=== PATIENT | female | born 1955 ===

== ENCOUNTER 2019-01-26 09:37 | Inpatient (IN) ==
[2019-01-26] MEDS ORDERED: GLUCAGON 1 MG VIAL IM PRN (13:58)
[2019-01-26] MEDS ORDERED: ONDANSETRON 4 MG/2 ML VIAL IV PRN (13:58)
[2019-01-26] MEDS ORDERED: DEXTROSE 10% 25 GM/250 ML BAG IV PRN (13:58)
[2019-01-26] MEDS ORDERED: ACETAMINOPHEN 325 MG TABLET PO PRN (13:58)
[2019-01-26 14:37] LABS: Basophils % 0.2 % (0.0-0.8); Hematocrit 26.8 VOL% (35.7-47.0); Hemoglobin 8.9 GM/DL (12.0-16.0); Immature Granulocytes % 0.8 %; Immature Granulocytes Absolute 0.09 #; Lymphocytes # 0.7 10*3/uL (1.4-4.0); Lymphocytes % 6.3 % (21.3-54.2); Mean Corpuscular HGB Conc 33.2 GM/DL (32-36); Mean Corpuscular Volume 101.1 FL (87-102); Mean Platelet Volume 11.6 FL (9.6-12.0); Monocytes % 4.4 % (1.7-12.7); Neutrophils % 88.3 % (38.7-73.9); Platelet Count 108 T/CUMM (130-400); Red Blood Count 2.65 MC/CUMM (3.8-5.5); Red Cell Distribution Width 15.6 % (9.3-17.3); White Blood Count 11.3 T/CUMM (4-12)
[2019-01-26] MEDS ORDERED: EPOETIN ALFA 10,000 UNIT/1 ML VIAL IV PRN (14:49)
[2019-01-26 15:14] LABS: Bilirubin,Total 0.5 MG/DL (0.2-1.0); Calcium 8.7 MG/DL (8.5-10.1); Osmolality,Calculated 286.8 MOS/KG (273-304); Thyroid Stimulating Hormone 0.932 uIU/ml (0.358-3.74); Total Protein 7.2 G/DL (6.4-8.3)
[2019-01-26] MEDS: INSULIN LISPRO 100 UNIT/ML SUBCUT SCH ×2 (16:45→20:43)
[2019-01-26] MEDS: METOCLOPRAMIDE 5 MG TABLET PO SCH (16:46)
[2019-01-26] MEDS ORDERED: SEVELAMER CARBONATE 800 MG TABLET PO PRN (16:52)
[2019-01-26] MEDS: SEVELAMER CARBONATE 800 MG TABLET PO SCH (17:25)
[2019-01-26] MEDS: carvediloL 6.25 MG TABLET PO SCH (20:43)
[2019-01-26] MEDS: ROSUVASTATIN 20 MG TABLET PO SCH (20:43)
[2019-01-26] MEDS: PENTOXIFYLLINE 400 MG TABLET PO SCH (20:43)
[2019-01-26] MEDS ORDERED: SEVELAMER CARBONATE 800 MG TABLET PO SCH (21:00)
[2019-01-27 04:50] LABS: Basophils % 0.1 % (0.0-0.8); Eosinophils % 0.2 % (0.00-10.9); Hematocrit 26.9 VOL% (35.7-47.0); Hemoglobin 8.8 GM/DL (12.0-16.0); Immature Granulocytes % 0.9 %; Immature Granulocytes Absolute 0.09 #; Lymphocytes # 1.1 10*3/uL (1.4-4.0); Lymphocytes % 11.5 % (21.3-54.2); Mean Corpuscular HGB Conc 32.7 GM/DL (32-36); Mean Corpuscular Volume 100.4 FL (87-102); Mean Platelet Volume 12.6 FL (9.6-12.0); Monocytes % 6.7 % (1.7-12.7); Neutrophils % 80.6 % (38.7-73.9); Platelet Count 105 T/CUMM (130-400); Red Blood Count 2.68 MC/CUMM (3.8-5.5); Red Cell Distribution Width 15.5 % (9.3-17.3); White Blood Count 9.7 T/CUMM (4-12)
[2019-01-27 05:06] LABS: Bilirubin,Total 0.7 MG/DL (0.2-1.0); Calcium 8.8 MG/DL (8.5-10.1); Osmolality,Calculated 289.8 MOS/KG (273-304); Risk Ratio 1.96
[2019-01-27] MEDS: INSULIN LISPRO 100 UNIT/ML SUBCUT SCH ×4 (08:57→20:30)
[2019-01-27] MEDS ORDERED: SEVELAMER CARBONATE 800 MG TABLET PO SCH (09:00)
[2019-01-27] MEDS: lisinopriL 20 MG TABLET PO SCH (09:02)
[2019-01-27] MEDS: METOCLOPRAMIDE 5 MG TABLET PO SCH ×3 (09:02→16:41)
[2019-01-27] MEDS: SEVELAMER CARBONATE 800 MG TABLET PO SCH ×3 (09:04→16:41)
[2019-01-27] MEDS: PENTOXIFYLLINE 400 MG TABLET PO SCH ×3 (09:04→20:30)
[2019-01-27] MEDS: DOCUSATE SODIUM 100 MG CAPSULE PO SCH (09:04)
[2019-01-27] MEDS: PANTOPRAZOLE 40 MG TABLET PO SCH (09:04)
[2019-01-27] MEDS: ASPIRIN EC 81 MG TABLET PO SCH (09:04)
[2019-01-27] MEDS: amLODIPine 10 MG TABLET PO SCH (09:04)
[2019-01-27] MEDS: carvediloL 6.25 MG TABLET PO SCH ×2 (09:05→20:30)
[2019-01-27] MEDS: ROSUVASTATIN 20 MG TABLET PO SCH (20:30)
[2019-01-28 04:57] LABS: Basophils % 0.2 % (0.0-0.8); Eosinophils # 0.1 10*3/uL (0.0-0.87); Hematocrit 24.9 VOL% (35.7-47.0); Immature Granulocytes % 0.3 %; Immature Granulocytes Absolute 0.02 #; Lymphocytes # 1.3 10*3/uL (1.4-4.0); Lymphocytes % 20.1 % (21.3-54.2); Mean Corpuscular HGB Conc 32.1 GM/DL (32-36); Mean Corpuscular Volume 102.5 FL (87-102); Mean Platelet Volume 12.4 FL (9.6-12.0); Monocytes % 8.8 % (1.7-12.7); Neutrophils % 68.6 % (38.7-73.9); Platelet Count 89 T/CUMM (130-400); Red Blood Count 2.43 MC/CUMM (3.8-5.5); Red Cell Distribution Width 15.3 % (9.3-17.3); White Blood Count 6.6 T/CUMM (4-12)
[2019-01-28 05:21] LABS: Albumin 2.6 G/DL (3.4-5.0); Bilirubin,Total 0.5 MG/DL (0.2-1.0); Calcium 8.2 MG/DL (8.5-10.1); Total Protein 6.2 G/DL (6.4-8.3)
[2019-01-28 05:22] LABS: Hypochromasia 1+; Platelet Estimate Decreased
[2019-01-28] MEDS: amLODIPine 10 MG TABLET PO SCH (09:40)
[2019-01-28] MEDS: DOCUSATE SODIUM 100 MG CAPSULE PO SCH (09:40)
[2019-01-28] MEDS: ASPIRIN EC 81 MG TABLET PO SCH (09:40)
[2019-01-28] MEDS: METOCLOPRAMIDE 5 MG TABLET PO SCH ×3 (09:41→16:43)
[2019-01-28] MEDS: PANTOPRAZOLE 40 MG TABLET PO SCH (09:41)
[2019-01-28] MEDS: PENTOXIFYLLINE 400 MG TABLET PO SCH ×3 (09:41→20:28)
[2019-01-28] MEDS: carvediloL 6.25 MG TABLET PO SCH ×2 (09:41→20:28)
[2019-01-28] MEDS: lisinopriL 20 MG TABLET PO SCH (09:48)
[2019-01-28] MEDS: INSULIN LISPRO 100 UNIT/ML SUBCUT SCH ×4 (09:50→20:28)
[2019-01-28] MEDS: SEVELAMER CARBONATE 800 MG TABLET PO SCH ×3 (10:02→18:15)
[2019-01-28 12:48] LABS: Hepatitis B Core IgM Quant 0.15 Index; Hepatitis B Surface Ag Quant 0.34 Index; Hepatitis B Surface Ag Result Negative (Negative); Hepatitis C Virus Ab Quant 0.04 Index; Hepatitis C Virus Ab Result Negative (Negative)
[2019-01-28 18:02] VITALS: BP 98/50
[2019-01-28] MEDS: ROSUVASTATIN 20 MG TABLET PO SCH (20:28)
== END 2019-01-28 22:33 | disposition home or self-care (01) | DRG 314 ==
LOC: N.TELES → SUATTDRO 12:08
PROVIDERS: ADMIT Internal Medicine; ATTEND Internal Medicine Geriatric Medicine

== ENCOUNTER 2020-12-03 06:00 | Inpatient (IN) ==
[2020-12-03] MEDS ORDERED: ceFAZolin 1,000 MG VIAL ONE (06:01)
[2020-12-03] MEDS ORDERED: SODIUM CHLORIDE 0.9% 250 ML IV SCH (06:30)
[2020-12-03 06:55] LABS: Hematocrit 33.7 VOL% (35.7-47.0); Hemoglobin 10.1 GM/DL (12.0-16.0)
[2020-12-03] MEDS ORDERED: FAMOTIDINE 20 MG TABLET PO ONE (10:00)
[2020-12-03] MEDS ORDERED: ALBUTEROL/IPRATROPIUM 3 ML NEB RESP TX PRN (11:58)
[2020-12-03] MEDS ORDERED: HYDROmorphone 2 MG/1 ML VIAL IV PRN (11:58)
[2020-12-03] MEDS ORDERED: ACETAMINOPHEN 325 MG TABLET PO PRN (11:58)
[2020-12-03] MEDS ORDERED: VANCOMYCIN INJ 1,000 MG in SODIUM CHLORIDE 0.9% 250 ML IV SCH (12:30)
[2020-12-03] MEDS ORDERED: SEVELAMER CARBONATE 800 MG TABLET PO SCH (12:30)
[2020-12-03] MEDS ORDERED: REGADENOSON 0.4 MG/5 ML SYRINGE IV ONE (13:37)
[2020-12-03] MEDS ORDERED: VANCOMYCIN 1,000 MG VIAL ONE (14:36)
[2020-12-03] MEDS: LACTATED RINGERS 1,000 ML IV SCH (14:45)
[2020-12-03] MEDS: PIPERACILLIN/TAZOBACTAM 3,375 MG in SODIUM CHLORIDE 0.9% 100 ML IV SCH ×2 (14:50→23:00)
[2020-12-03] MEDS: traMADol 50 MG TABLET PO PRN (14:51)
[2020-12-03] MEDS ORDERED: GLUCAGON 1 MG VIAL IM PRN (15:52)
[2020-12-03] MEDS ORDERED: DEXTROSE 50% 25 GM/50 ML VIAL IV PRN (15:52)
[2020-12-03] MEDS: PENTOXIFYLLINE 400 MG TABLET PO SCH ×2 (15:53→21:00)
[2020-12-03] MEDS ORDERED: VANCOMYCIN INJ 500 MG in SODIUM CHLORIDE 0.9% 100 ML IV PRN (15:57)
[2020-12-03] MEDS: SEVELAMER CARBONATE 800 MG TABLET PO SCH ×2 (16:01→21:00)
[2020-12-03 16:25] LABS: Calcium 8.8 MG/DL (8.5-10.1); Osmolality,Calculated 280.1 MOS/KG (273-304); Potassium 3.4 MMOL/L (3.5-5.1)
[2020-12-03] MEDS: INSULIN LISPRO 100 UNIT/ML SUBCUT SCH (16:45)
[2020-12-03] MEDS: INSULIN REGULAR 100 UNIT/ML SUBCUT SCH ×2 (17:15→21:43)
[2020-12-03] MEDS ORDERED: VANCOMYCIN INJ 2,000 MG in SODIUM CHLORIDE 0.9% 500 ML IV ONE (20:00)
[2020-12-03] MEDS: carvediloL 6.25 MG TABLET PO SCH (21:00)
[2020-12-04] MEDS: PIPERACILLIN/TAZOBACTAM 3,375 MG in SODIUM CHLORIDE 0.9% 100 ML IV SCH ×3 (04:19→21:20)
[2020-12-04 05:21] LABS: Basophils % 0.3 % (0.0-0.8); Eosinophils # 0.1 10*3/uL (0.0-0.87); Eosinophils % 1.7 % (0.00-10.9); Hematocrit 30.3 VOL% (35.7-47.0); Hemoglobin 9.1 GM/DL (12.0-16.0); Immature Granulocytes % 0.5 %; Immature Granulocytes Absolute 0.03 #; Lymphocytes # 1.2 10*3/uL (1.4-4.0); Lymphocytes % 18.6 % (21.3-54.2); Mean Platelet Volume 11.6 FL (9.6-12.0); Neutrophils % 69.9 % (38.7-73.9); Platelet Count 120 T/CUMM (130-400); Red Blood Count 3.03 MC/CUMM (3.8-5.5); Red Cell Distribution Width 19.9 % (9.3-17.3); White Blood Count 6.5 T/CUMM (4-12)
[2020-12-04] MEDS: LOPERAMIDE 2 MG CAPSULE PO SCH (05:42)
[2020-12-04 05:46] LABS: Calcium 8.7 MG/DL (8.5-10.1); Osmolality,Calculated 284.7 MOS/KG (273-304); Potassium 3.5 MMOL/L (3.5-5.1)
[2020-12-04] MEDS: INSULIN REGULAR 100 UNIT/ML SUBCUT SCH ×4 (07:09→23:01)
[2020-12-04] MEDS ORDERED: CLINDAMYCIN INJ 900 MG/50 ML PREMIX IV ONE (07:10)
[2020-12-04] MEDS: INSULIN LISPRO 100 UNIT/ML SUBCUT SCH ×3 (08:00→15:08)
[2020-12-04] MEDS: SEVELAMER CARBONATE 800 MG TABLET PO SCH ×5 (08:00→21:26)
[2020-12-04] MEDS: lisinopriL 20 MG TABLET PO SCH (08:22)
[2020-12-04] MEDS: carvediloL 6.25 MG TABLET PO SCH ×2 (08:22→21:20)
[2020-12-04] MEDS ORDERED: MIDAZOLAM 2 MG/2 ML VIAL ONE (08:28)
[2020-12-04] MEDS ORDERED: propofoL 200 MG/20 ML VIAL IV ONE (08:28)
[2020-12-04] MEDS ORDERED: fentaNYL 100 MCG/2 ML VIAL ONE (08:28)
[2020-12-04] MEDS ORDERED: LIDOCAINE 2% 5 ML VIAL ONE (08:28)
[2020-12-04] MEDS ORDERED: ONDANSETRON 4 MG/2 ML VIAL ONE (08:28)
[2020-12-04] MEDS ORDERED: FAMOTIDINE 20 MG/2 ML VIAL IV ONE (08:37)
[2020-12-04] MEDS ORDERED: ROCURONIUM 50 MG/5 ML VIAL IV ONE (08:46)
[2020-12-04] MEDS ORDERED: SUCCINYLCHOLINE 200 MG/10 ML VIAL ONE (08:46)
[2020-12-04] MEDS ORDERED: SODIUM CHLORIDE 0.9% 250 ML IV SCH (09:00)
[2020-12-04] MEDS: PENTOXIFYLLINE 400 MG TABLET PO SCH ×3 (09:00→21:20)
[2020-12-04] MEDS ORDERED: PHENYLEPHRINE 1 MG/10 ML SYRINGE IV ONE (09:09)
[2020-12-04] MEDS ORDERED: SEVOFLURANE 1 UNIT/15 MINUTE INH ONE (09:27)
[2020-12-04] MEDS: ASPIRIN CHEW 81 MG TABLET PO SCH (15:29)
[2020-12-04] MEDS: ROSUVASTATIN 20 MG TABLET PO SCH (15:29)
[2020-12-04] MEDS: PANTOPRAZOLE 40 MG TABLET PO SCH (15:30)
[2020-12-04] MEDS: GABAPENTIN 100 MG CAPSULE PO SCH ×3 (15:30→21:32)
[2020-12-04] MEDS ORDERED: VANCOMYCIN INJ 500 MG in SODIUM CHLORIDE 0.9% 100 ML IV ONE (17:00)
[2020-12-04] MEDS: ONDANSETRON 4 MG/2 ML VIAL IV PRN (19:29)
[2020-12-04] MEDS: LACTATED RINGERS 1,000 ML IV SCH ×2 (19:30→19:31)
[2020-12-04] MEDS: BISACODYL 5 MG TABLET PO PRN (21:19)
[2020-12-05] MEDS: PIPERACILLIN/TAZOBACTAM 3,375 MG in SODIUM CHLORIDE 0.9% 100 ML IV SCH ×3 (04:37→20:24)
[2020-12-05] MEDS: LACTATED RINGERS 1,000 ML IV SCH (04:39)
[2020-12-05] MEDS: INSULIN REGULAR 100 UNIT/ML SUBCUT SCH ×4 (07:28→20:13)
[2020-12-05] MEDS: INSULIN LISPRO 100 UNIT/ML SUBCUT SCH ×3 (07:28→16:50)
[2020-12-05] MEDS: carvediloL 6.25 MG TABLET PO SCH ×2 (08:47→20:24)
[2020-12-05] MEDS: ROSUVASTATIN 20 MG TABLET PO SCH (08:47)
[2020-12-05] MEDS: ASPIRIN CHEW 81 MG TABLET PO SCH (08:47)
[2020-12-05] MEDS: SEVELAMER CARBONATE 800 MG TABLET PO SCH ×4 (08:47→20:14)
[2020-12-05] MEDS: PANTOPRAZOLE 40 MG TABLET PO SCH (08:48)
[2020-12-05] MEDS: lisinopriL 20 MG TABLET PO SCH (08:48)
[2020-12-05] MEDS: PENTOXIFYLLINE 400 MG TABLET PO SCH ×3 (08:48→20:24)
[2020-12-05] MEDS: GABAPENTIN 100 MG CAPSULE PO SCH ×3 (08:48→20:24)
[2020-12-05] MEDS: ONDANSETRON 4 MG/2 ML VIAL IV PRN ×2 (11:30→17:27)
[2020-12-06] MEDS: PIPERACILLIN/TAZOBACTAM 3,375 MG in SODIUM CHLORIDE 0.9% 100 ML IV SCH ×3 (04:46→21:25)
[2020-12-06] MEDS: INSULIN LISPRO 100 UNIT/ML SUBCUT SCH ×3 (07:37→16:40)
[2020-12-06] MEDS: INSULIN REGULAR 100 UNIT/ML SUBCUT SCH ×4 (07:37→21:17)
[2020-12-06] MEDS: SEVELAMER CARBONATE 800 MG TABLET PO SCH ×4 (08:54→21:17)
[2020-12-06] MEDS: GABAPENTIN 100 MG CAPSULE PO SCH ×3 (08:56→21:25)
[2020-12-06] MEDS: ROSUVASTATIN 20 MG TABLET PO SCH (08:56)
[2020-12-06] MEDS: carvediloL 6.25 MG TABLET PO SCH ×2 (08:56→21:25)
[2020-12-06] MEDS: ASPIRIN CHEW 81 MG TABLET PO SCH (08:56)
[2020-12-06] MEDS: lisinopriL 20 MG TABLET PO SCH (08:56)
[2020-12-06] MEDS: PENTOXIFYLLINE 400 MG TABLET PO SCH ×3 (08:57→21:25)
[2020-12-06] MEDS: PANTOPRAZOLE 40 MG TABLET PO SCH (08:57)
[2020-12-06] MEDS: traMADol 50 MG TABLET PO PRN (23:12)
[2020-12-07] MEDS: PIPERACILLIN/TAZOBACTAM 3,375 MG in SODIUM CHLORIDE 0.9% 100 ML IV SCH ×4 (05:40→23:54)
[2020-12-07 06:52] LABS: Alanine Aminotransferase < 6 U/L (13-56); Albumin 2.3 G/DL (3.4-5.0); Alkaline Phosphatase 59 U/L (45-117); Aspartate Amino Transferase 14 U/L (0-37); Blood Urea Nitrogen 43 MG/DL (7-18); Calcium 8.2 MG/DL (8.5-10.1); Carbon Dioxide 25 MMOL/L (21-32); Estimated Glom Filtration Rate 8 ML/MIN; Glucose 130 MG/DL (74-106); Potassium 4.6 MMOL/L (3.5-5.1); Sodium 136 MMOL/L (136-145); Total Protein 5.8 G/DL (6.4-8.2)
[2020-12-07] MEDS: LOPERAMIDE 2 MG CAPSULE PO SCH (07:59)
[2020-12-07] MEDS: INSULIN REGULAR 100 UNIT/ML SUBCUT SCH ×4 (08:52→20:50)
[2020-12-07] MEDS: ASPIRIN CHEW 81 MG TABLET PO SCH (08:53)
[2020-12-07] MEDS: PANTOPRAZOLE 40 MG TABLET PO SCH (08:53)
[2020-12-07] MEDS: ROSUVASTATIN 20 MG TABLET PO SCH (08:53)
[2020-12-07] MEDS: lisinopriL 20 MG TABLET PO SCH (08:53)
[2020-12-07] MEDS: carvediloL 6.25 MG TABLET PO SCH ×2 (08:53→20:35)
[2020-12-07] MEDS: INSULIN LISPRO 100 UNIT/ML SUBCUT SCH ×3 (08:53→17:49)
[2020-12-07] MEDS: GABAPENTIN 100 MG CAPSULE PO SCH ×3 (08:53→20:34)
[2020-12-07] MEDS: SEVELAMER CARBONATE 800 MG TABLET PO SCH ×4 (08:53→20:51)
[2020-12-07] MEDS: PENTOXIFYLLINE 400 MG TABLET PO SCH ×3 (08:54→20:34)
[2020-12-07] MEDS: LACTATED RINGERS 1,000 ML IV SCH (11:13)
[2020-12-07] MEDS ORDERED: VANCOMYCIN INJ 500 MG in SODIUM CHLORIDE 0.9% 100 ML IV ONE (17:00)
[2020-12-07] MEDS: traMADol 50 MG TABLET PO PRN (23:53)
[2020-12-08] MEDS ORDERED: fentaNYL 100 MCG/2 ML VIAL ONE (08:07)
[2020-12-08] MEDS ORDERED: LIDOCAINE 2% 5 ML VIAL ONE (08:07)
[2020-12-08] MEDS ORDERED: ONDANSETRON 4 MG/2 ML VIAL ONE (08:07)
[2020-12-08] MEDS ORDERED: propofoL 200 MG/20 ML VIAL IV ONE (08:07)
[2020-12-08] MEDS: INSULIN REGULAR 100 UNIT/ML SUBCUT SCH ×4 (08:09→22:59)
[2020-12-08] MEDS: PENTOXIFYLLINE 400 MG TABLET PO SCH ×3 (08:10→21:29)
[2020-12-08] MEDS: lisinopriL 20 MG TABLET PO SCH (08:10)
[2020-12-08] MEDS: carvediloL 6.25 MG TABLET PO SCH ×2 (08:10→21:29)
[2020-12-08] MEDS: ROSUVASTATIN 20 MG TABLET PO SCH (08:10)
[2020-12-08] MEDS: GABAPENTIN 100 MG CAPSULE PO SCH ×3 (08:10→21:29)
[2020-12-08] MEDS: ASPIRIN CHEW 81 MG TABLET PO SCH (08:10)
[2020-12-08] MEDS: PANTOPRAZOLE 40 MG TABLET PO SCH (08:10)
[2020-12-08] MEDS: INSULIN LISPRO 100 UNIT/ML SUBCUT SCH ×3 (08:10→17:08)
[2020-12-08] MEDS: SEVELAMER CARBONATE 800 MG TABLET PO SCH ×4 (08:10→22:59)
[2020-12-08] MEDS ORDERED: SODIUM CHLORIDE 0.9% 250 ML IV SCH (08:30)
[2020-12-08] MEDS ORDERED: ePHEDrine 50 MG/ML VIAL ONE (08:41)
[2020-12-08] MEDS ORDERED: SEVOFLURANE 1 UNIT/15 MINUTE INH ONE (09:35)
[2020-12-08] MEDS: HYDROmorphone 2 MG/1 ML VIAL IV PRN (10:02)
[2020-12-08] MEDS: ONDANSETRON 4 MG/2 ML VIAL IV PRN (10:03)
[2020-12-08] MEDS: PIPERACILLIN/TAZOBACTAM 3,375 MG in SODIUM CHLORIDE 0.9% 100 ML IV SCH (11:38)
[2020-12-08] MEDS: traMADol 50 MG TABLET PO PRN (21:29)
[2020-12-09] MEDS: PIPERACILLIN/TAZOBACTAM 3,375 MG in SODIUM CHLORIDE 0.9% 100 ML IV SCH ×3 (00:17→23:55)
[2020-12-09] MEDS: LOPERAMIDE 2 MG CAPSULE PO SCH (06:22)
[2020-12-09] MEDS: INSULIN REGULAR 100 UNIT/ML SUBCUT SCH ×4 (07:26→21:24)
[2020-12-09] MEDS: INSULIN LISPRO 100 UNIT/ML SUBCUT SCH ×3 (07:26→16:09)
[2020-12-09] MEDS: SEVELAMER CARBONATE 800 MG TABLET PO SCH ×4 (08:32→21:24)
[2020-12-09] MEDS: PENTOXIFYLLINE 400 MG TABLET PO SCH ×3 (09:00→21:24)
[2020-12-09] MEDS: GABAPENTIN 100 MG CAPSULE PO SCH ×3 (09:00→21:24)
[2020-12-09] MEDS: ASPIRIN CHEW 81 MG TABLET PO SCH (14:44)
[2020-12-09] MEDS: carvediloL 6.25 MG TABLET PO SCH ×2 (14:45→21:24)
[2020-12-09] MEDS: ROSUVASTATIN 20 MG TABLET PO SCH (14:45)
[2020-12-09] MEDS: lisinopriL 20 MG TABLET PO SCH (14:46)
[2020-12-09] MEDS: PANTOPRAZOLE 40 MG TABLET PO SCH (14:46)
[2020-12-09] MEDS: VANCOMYCIN INJ 500 MG in SODIUM CHLORIDE 0.9% 100 ML IV ONE ×2 (17:42→19:10)
[2020-12-10] MEDS: HYDROmorphone 2 MG/1 ML VIAL IV PRN (01:37)
[2020-12-10] MEDS: INSULIN REGULAR 100 UNIT/ML SUBCUT SCH ×4 (08:11→21:21)
[2020-12-10] MEDS: INSULIN LISPRO 100 UNIT/ML SUBCUT SCH ×3 (08:12→18:09)
[2020-12-10] MEDS: ROSUVASTATIN 20 MG TABLET PO SCH (10:03)
[2020-12-10] MEDS: lisinopriL 20 MG TABLET PO SCH (10:03)
[2020-12-10] MEDS: ASPIRIN CHEW 81 MG TABLET PO SCH (10:04)
[2020-12-10] MEDS: PENTOXIFYLLINE 400 MG TABLET PO SCH ×3 (10:04→21:01)
[2020-12-10] MEDS: PANTOPRAZOLE 40 MG TABLET PO SCH (10:04)
[2020-12-10] MEDS: carvediloL 6.25 MG TABLET PO SCH ×2 (10:04→21:01)
[2020-12-10] MEDS: GABAPENTIN 100 MG CAPSULE PO SCH ×3 (10:04→21:01)
[2020-12-10] MEDS: SEVELAMER CARBONATE 800 MG TABLET PO SCH ×4 (10:09→21:14)
[2020-12-10] MEDS: PIPERACILLIN/TAZOBACTAM 3,375 MG in SODIUM CHLORIDE 0.9% 100 ML IV SCH ×2 (12:15→23:52)
[2020-12-11] MEDS: LOPERAMIDE 2 MG CAPSULE PO SCH (05:18)
[2020-12-11] MEDS ORDERED: VANCOMYCIN INJ 500 MG in SODIUM CHLORIDE 0.9% 100 ML IV PRN (07:21)
[2020-12-11] MEDS: INSULIN REGULAR 100 UNIT/ML SUBCUT SCH ×4 (07:30→21:22)
[2020-12-11] MEDS: lisinopriL 20 MG TABLET PO SCH (08:26)
[2020-12-11] MEDS: INSULIN LISPRO 100 UNIT/ML SUBCUT SCH ×3 (08:26→16:49)
[2020-12-11] MEDS: GABAPENTIN 100 MG CAPSULE PO SCH ×3 (08:27→21:47)
[2020-12-11] MEDS: ROSUVASTATIN 20 MG TABLET PO SCH (08:27)
[2020-12-11] MEDS: ASPIRIN CHEW 81 MG TABLET PO SCH (08:27)
[2020-12-11] MEDS: carvediloL 6.25 MG TABLET PO SCH ×2 (08:27→21:47)
[2020-12-11] MEDS: PENTOXIFYLLINE 400 MG TABLET PO SCH ×3 (08:29→21:47)
[2020-12-11] MEDS: PANTOPRAZOLE 40 MG TABLET PO SCH (08:29)
[2020-12-11] MEDS: SEVELAMER CARBONATE 800 MG TABLET PO SCH ×4 (08:29→21:48)
[2020-12-11 08:41] LABS: Basophils % 0.2 % (0.0-0.8); Eosinophils # 0.1 10*3/uL (0.0-0.87); Eosinophils % 1.7 % (0.00-10.9); Hematocrit 24.3 VOL% (35.7-47.0); Immature Granulocytes % 0.5 %; Immature Granulocytes Absolute 0.03 #; Lymphocytes # 1.6 10*3/uL (1.4-4.0); Lymphocytes % 27.4 % (21.3-54.2); Mean Corpuscular HGB Conc 28.8 GM/DL (32-36); Mean Platelet Volume 11.3 FL (9.6-12.0); Monocytes % 6.5 % (1.7-12.7); Neutrophils % 63.7 % (38.7-73.9); Platelet Count 132 T/CUMM (130-400); Red Cell Distribution Width 19.2 % (9.3-17.3); White Blood Count 5.9 T/CUMM (4-12)
[2020-12-11 08:51] LABS: Red Blood Count 2.36 MC/CUMM (3.8-5.5)
[2020-12-11 08:57] LABS: Calcium 8.6 MG/DL (8.5-10.1); Osmolality,Calculated 286.4 MOS/KG (273-304); Potassium 4.8 MMOL/L (3.5-5.1)
[2020-12-11 08:59] LABS: Eosinophils 1 % (0-10); Lymphocytes 29 % (20-55); Segmented Neutrophils 60 % (50-85); Total Cells Counted 100
[2020-12-11 09:00] LABS: Hypochromasia 1+; Microcytosis 1+; Platelet Estimate Normal
[2020-12-11] MEDS ORDERED: EPOETIN ALFA-EPBX 2,000 UNIT/ML VIAL IV PRN (12:26)
[2020-12-11] MEDS: PIPERACILLIN/TAZOBACTAM 3,375 MG in SODIUM CHLORIDE 0.9% 100 ML IV SCH (14:57)
[2020-12-11] MEDS: BISACODYL 5 MG TABLET PO PRN (21:47)
[2020-12-12] MEDS: PIPERACILLIN/TAZOBACTAM 3,375 MG in SODIUM CHLORIDE 0.9% 100 ML IV SCH ×2 (00:33→12:06)
[2020-12-12 07:05] LABS: Eosinophils # 0.1 10*3/uL (0.0-0.87); Eosinophils % 1.3 % (0.00-10.9); Hematocrit 23.7 VOL% (35.7-47.0); Hemoglobin 6.8 GM/DL (12.0-16.0); Immature Granulocytes % 0.6 %; Immature Granulocytes Absolute 0.04 #; Lymphocytes # 1.2 10*3/uL (1.4-4.0); Lymphocytes % 17.8 % (21.3-54.2); Mean Corpuscular HGB Conc 28.7 GM/DL (32-36); Mean Corpuscular Volume 102.6 FL (87-102); Mean Platelet Volume 11.2 FL (9.6-12.0); Neutrophils % 75.3 % (38.7-73.9); Platelet Count 145 T/CUMM (130-400); Red Blood Count 2.31 MC/CUMM (3.8-5.5); Red Cell Distribution Width 18.9 % (9.3-17.3)
[2020-12-12 07:30] LABS: Calcium 8.5 MG/DL (8.5-10.1); Potassium 4.3 MMOL/L (3.5-5.1)
[2020-12-12] MEDS: ROSUVASTATIN 20 MG TABLET PO SCH (09:06)
[2020-12-12] MEDS: SEVELAMER CARBONATE 800 MG TABLET PO SCH ×4 (09:06→21:46)
[2020-12-12] MEDS: lisinopriL 20 MG TABLET PO SCH (09:06)
[2020-12-12] MEDS: carvediloL 6.25 MG TABLET PO SCH ×2 (09:07→20:33)
[2020-12-12] MEDS: GABAPENTIN 100 MG CAPSULE PO SCH ×3 (09:07→20:33)
[2020-12-12] MEDS: PANTOPRAZOLE 40 MG TABLET PO SCH (09:07)
[2020-12-12] MEDS: PENTOXIFYLLINE 400 MG TABLET PO SCH ×3 (09:07→20:32)
[2020-12-12] MEDS: ASPIRIN CHEW 81 MG TABLET PO SCH (09:07)
[2020-12-12] MEDS: INSULIN REGULAR 100 UNIT/ML SUBCUT SCH ×4 (09:08→21:46)
[2020-12-12] MEDS: INSULIN LISPRO 100 UNIT/ML SUBCUT SCH ×3 (09:09→16:46)
[2020-12-12 10:41] LABS: Lymphocytes 9 % (20-55); Segmented Neutrophils 87 % (50-85); Total Cells Counted 100
[2020-12-12 10:42] LABS: Ovalocytes Slight; Platelet Estimate Adequate
[2020-12-12 10:47] LABS: Target Cells Slight
[2020-12-13] MEDS: PIPERACILLIN/TAZOBACTAM 3,375 MG in SODIUM CHLORIDE 0.9% 100 ML IV SCH ×2 (00:31→11:43)
[2020-12-13] MEDS: carvediloL 6.25 MG TABLET PO SCH ×2 (09:05→21:41)
[2020-12-13] MEDS: SEVELAMER CARBONATE 800 MG TABLET PO SCH ×4 (09:05→21:59)
[2020-12-13] MEDS: lisinopriL 20 MG TABLET PO SCH (09:06)
[2020-12-13] MEDS: PENTOXIFYLLINE 400 MG TABLET PO SCH ×3 (09:06→21:41)
[2020-12-13] MEDS: INSULIN LISPRO 100 UNIT/ML SUBCUT SCH ×3 (09:06→17:55)
[2020-12-13] MEDS: GABAPENTIN 100 MG CAPSULE PO SCH ×3 (09:06→21:41)
[2020-12-13] MEDS: PANTOPRAZOLE 40 MG TABLET PO SCH (09:06)
[2020-12-13] MEDS: ROSUVASTATIN 20 MG TABLET PO SCH (09:06)
[2020-12-13] MEDS: ASPIRIN CHEW 81 MG TABLET PO SCH (09:06)
[2020-12-13] MEDS: INSULIN REGULAR 100 UNIT/ML SUBCUT SCH ×4 (09:46→21:58)
[2020-12-14] MEDS: PIPERACILLIN/TAZOBACTAM 3,375 MG in SODIUM CHLORIDE 0.9% 100 ML IV SCH ×2 (00:42→15:14)
[2020-12-14] MEDS: LOPERAMIDE 2 MG CAPSULE PO SCH (05:25)
[2020-12-14 06:31] LABS: Osmolality,Calculated 277.1 MOS/KG (273-304); Potassium 5.3 MMOL/L (3.5-5.1)
[2020-12-14 07:17] LABS: Basophils % 0.3 % (0.0-0.8); Eosinophils # 0.2 10*3/uL (0.0-0.87); Eosinophils % 2.9 % (0.00-10.9); Hemoglobin 6.6 GM/DL (12.0-16.0); Immature Granulocytes % 0.5 %; Immature Granulocytes Absolute 0.03 #; Lymphocytes # 1.3 10*3/uL (1.4-4.0); Lymphocytes % 20.1 % (21.3-54.2); Mean Corpuscular Volume 100.5 FL (87-102); Mean Platelet Volume 11.5 FL (9.6-12.0); Monocytes % 8.1 % (1.7-12.7); Neutrophils % 68.1 % (38.7-73.9); Platelet Count 163 T/CUMM (130-400); Red Blood Count 2.19 MC/CUMM (3.8-5.5); Red Cell Distribution Width 18.1 % (9.3-17.3); White Blood Count 6.3 T/CUMM (4-12)
[2020-12-14 07:56] LABS: Anisocytosis 2+; Band Neutrophils 4 % (0-10); Eosinophils 4 % (0-10); Hypochromasia Slight; Lymphocytes 21 % (20-55); Macrocytosis Slight; Ovalocytes Few; Platelet Estimate Normal; Poikilocytosis Slight; Segmented Neutrophils 66 % (50-85); Total Cells Counted 100
[2020-12-14] MEDS: INSULIN REGULAR 100 UNIT/ML SUBCUT SCH ×3 (08:26→18:04)
[2020-12-14] MEDS: lisinopriL 20 MG TABLET PO SCH (08:53)
[2020-12-14] MEDS: ROSUVASTATIN 20 MG TABLET PO SCH (08:54)
[2020-12-14] MEDS: carvediloL 6.25 MG TABLET PO SCH (08:54)
[2020-12-14] MEDS: INSULIN LISPRO 100 UNIT/ML SUBCUT SCH ×3 (08:54→18:04)
[2020-12-14] MEDS: PENTOXIFYLLINE 400 MG TABLET PO SCH ×2 (08:54→17:57)
[2020-12-14] MEDS: ASPIRIN CHEW 81 MG TABLET PO SCH (08:54)
[2020-12-14] MEDS: SEVELAMER CARBONATE 800 MG TABLET PO SCH ×3 (08:54→17:55)
[2020-12-14] MEDS: PANTOPRAZOLE 40 MG TABLET PO SCH (08:54)
[2020-12-14] MEDS: GABAPENTIN 100 MG CAPSULE PO SCH ×2 (08:54→17:56)
[2020-12-14 18:24] VITALS: BP 158/48
== END 2020-12-14 16:12 | DRG 239 ==
LOC: N.SDSINP 06:00 → N.OR 06:00 → N.SDSINP 06:02 → EDSTATUS 08:30 → N.SDSINP 11:58 → N.3E 15:11
PROVIDERS: ADMIT Surgery; ATTEND Surgery

== ENCOUNTER 2021-07-23 07:36 | Inpatient (IN) ==
[2021-07-23 08:48] LABS: Basophils % 0.9 % (0.0-0.8); Eosinophils # 0.1 10*3/uL (0.0-0.87); Eosinophils % 2.5 % (0.00-10.9); Hematocrit 29.8 VOL% (35.7-47.0); Hemoglobin 9.4 GM/DL (12.0-16.0); Immature Granulocytes % 0.5 %; Immature Granulocytes Absolute 0.02 #; Lymphocytes # 1.2 10*3/uL (1.4-4.0); Lymphocytes % 27.3 % (21.3-54.2); Mean Corpuscular HGB Conc 31.5 GM/DL (32-36); Mean Corpuscular Volume 103.5 FL (87-102); Mean Platelet Volume 11.9 FL (9.6-12.0); Monocytes % 8.5 % (1.7-12.7); Neutrophils % 60.3 % (38.7-73.9); Red Blood Count 2.88 MC/CUMM (3.8-5.5); White Blood Count 4.3 T/CUMM (4-12)
[2021-07-23 08:49] LABS: Platelet Count 96 T/CUMM (130-400)
[2021-07-23 09:01] LABS: Calcium 9.9 MG/DL (8.5-10.1); Osmolality,Calculated 286.7 MOS/KG (273-304); Potassium 4.1 MMOL/L (3.5-5.1)
[2021-07-23 09:06] LABS: Hypochromia Slight; Microcytosis Slight; Platelet Estimate Decreased
[2021-07-23] MEDS ORDERED: hydrALAZINE 20 MG/1 ML VIAL IV PRN (09:21)
[2021-07-23] MEDS ORDERED: GLUCAGON 1 MG VIAL IM PRN (09:21)
[2021-07-23] MEDS ORDERED: ACETAMINOPHEN 325 MG TABLET PO PRN (09:21)
[2021-07-23] MEDS ORDERED: DEXTROSE 10% 250 ML BAG IV PRN (09:21)
[2021-07-23] MEDS ORDERED: ONDANSETRON 4 MG/2 ML VIAL IV PRN (09:21)
[2021-07-23 10:27] LABS: INR 1.1; PT Patient Result 11.9 SECS (10.5-12.0)
[2021-07-23] MEDS: INSULIN LISPRO 100 UNIT/ML SUBCUT SCH ×4 (14:26→20:37)
[2021-07-23] MEDS ORDERED: EPOETIN ALFA-EPBX 4,000 UNIT/ML VIAL IV PRN (15:18)
[2021-07-23] MEDS: carvediloL 12.5 MG TABLET PO SCH (20:37)
[2021-07-23] MEDS: GABAPENTIN 100 MG CAPSULE PO SCH (20:37)
[2021-07-23] MEDS: ATORVASTATIN 20 MG TABLET PO SCH (20:37)
[2021-07-23] MEDS: SEVELAMER CARBONATE 800 MG TABLET PO SCH (20:37)
[2021-07-23] MEDS: PENTOXIFYLLINE 400 MG TABLET PO SCH (20:38)
[2021-07-24 06:57] LABS: Basophils % 0.4 % (0.0-0.8); Eosinophils # 0.2 10*3/uL (0.0-0.87); Eosinophils % 3.5 % (0.00-10.9); Hematocrit 22.5 VOL% (35.7-47.0); Immature Granulocytes % 0.2 %; Immature Granulocytes Absolute 0.01 #; Lymphocytes # 1.3 10*3/uL (1.4-4.0); Lymphocytes % 26.9 % (21.3-54.2); Mean Corpuscular Volume 103.7 FL (87-102); Mean Platelet Volume 11.6 FL (9.6-12.0); Monocytes % 9.5 % (1.7-12.7); Neutrophils % 59.5 % (38.7-73.9); Platelet Count 90 T/CUMM (130-400); Red Blood Count 2.17 MC/CUMM (3.8-5.5); Red Cell Distribution Width 15.8 % (9.3-17.3); White Blood Count 4.8 T/CUMM (4-12)
[2021-07-24 06:58] LABS: Hemoglobin 7.2 GM/DL (12.0-16.0)
[2021-07-24] MEDS: INSULIN LISPRO 100 UNIT/ML SUBCUT SCH ×7 (07:02→21:05)
[2021-07-24] MEDS ORDERED: KETAMINE 500 MG/10 ML VIAL ONE (07:08)
[2021-07-24] MEDS ORDERED: propofoL 200 MG/20 ML VIAL IV ONE (07:08)
[2021-07-24] MEDS ORDERED: DEXMEDETOMIDINE 200 MCG/2 ML VIAL ONE (07:08)
[2021-07-24] MEDS ORDERED: LIDOCAINE 2% 5 ML VIAL ONE (07:08)
[2021-07-24] MEDS ORDERED: ONDANSETRON 4 MG/2 ML VIAL ONE (07:08)
[2021-07-24] MEDS ORDERED: METOCLOPRAMIDE 10 MG/2 ML VIAL ONE (07:08)
[2021-07-24 07:21] LABS: Alanine Aminotransferase < 6 U/L (13-56); Albumin 2.3 G/DL (3.4-5.0); Alkaline Phosphatase 46 U/L (45-117); Aspartate Amino Transferase 12 U/L (0-37); Blood Urea Nitrogen 61 MG/DL (7-18); Calcium 9.4 MG/DL (8.5-10.1); Carbon Dioxide 29 MMOL/L (21-32); Estimated Glom Filtration Rate 10 ML/MIN; Glucose 79 MG/DL (74-106); HDL Cholesterol 46 MG/DL (40-60); Osmolality,Calculated 288.8 MOS/KG (273-304); Potassium 5.2 MMOL/L (3.5-5.1); Risk Ratio 1.54; Sodium 137 MMOL/L (136-145); Thyroid Stimulating Hormone 0.659 uIU/ml (0.358-3.74); Total Protein 5.9 G/DL (6.4-8.2); Triglycerides 40 MG/DL (2-150)
[2021-07-24] MEDS ORDERED: SODIUM CHLORIDE 0.9% 1,000 ML IV PRN (07:40)
[2021-07-24] MEDS ORDERED: ceFAZolin 1,000 MG VIAL ONE (08:06)
[2021-07-24] MEDS ORDERED: SEVOFLURANE 1 UNIT/15 MINUTE INH ONE (08:45)
[2021-07-24] MEDS: LORATADINE 10 MG TABLET PO SCH (09:25)
[2021-07-24] MEDS: PANTOPRAZOLE 40 MG TABLET PO SCH (09:25)
[2021-07-24] MEDS: MULTIVITAMIN (BEROCCA) TABLET PO SCH (09:25)
[2021-07-24] MEDS: ENOXAPARIN 30 MG/0.3 ML SYRINGE SUBCUT SCH (09:25)
[2021-07-24] MEDS: GABAPENTIN 100 MG CAPSULE PO SCH ×3 (09:25→21:04)
[2021-07-24] MEDS: ASPIRIN CHEW 81 MG TABLET PO SCH (09:25)
[2021-07-24] MEDS: carvediloL 12.5 MG TABLET PO SCH ×2 (10:08→21:04)
[2021-07-24] MEDS: PENTOXIFYLLINE 400 MG TABLET PO SCH ×3 (10:08→21:04)
[2021-07-24] MEDS: lisinopriL 20 MG TABLET PO SCH (10:08)
[2021-07-24 11:49] LABS: Hematocrit 24.7 VOL% (35.7-47.0); Hemoglobin 7.9 GM/DL (12.0-16.0)
[2021-07-24] MEDS: oxyCODONE/ACETAMINOPHEN 5-325 MG TABLET PO PRN (15:50)
[2021-07-24] MEDS ORDERED: HEPARIN 10,000 UNIT/10 ML VIAL IV SCH (16:45)
[2021-07-24] MEDS: SEVELAMER CARBONATE 800 MG TABLET PO SCH (21:04)
[2021-07-24] MEDS: ATORVASTATIN 20 MG TABLET PO SCH (21:04)
[2021-07-25] MEDS: INSULIN LISPRO 100 UNIT/ML SUBCUT SCH ×7 (07:46→21:04)
[2021-07-25 08:27] LABS: Basophils % 0.4 % (0.0-0.8); Eosinophils # 0.1 10*3/uL (0.0-0.87); Eosinophils % 1.8 % (0.00-10.9); Hematocrit 22.1 VOL% (35.7-47.0); Immature Granulocytes % 0.4 %; Immature Granulocytes Absolute 0.02 #; Mean Corpuscular HGB Conc 31.7 GM/DL (32-36); Mean Corpuscular Volume 103.8 FL (87-102); Mean Platelet Volume 11.3 FL (9.6-12.0); Monocytes % 9.6 % (1.7-12.7); Neutrophils % 69.8 % (38.7-73.9); Platelet Count 76 T/CUMM (130-400); Red Blood Count 2.13 MC/CUMM (3.8-5.5); Red Cell Distribution Width 15.9 % (9.3-17.3); White Blood Count 5.4 T/CUMM (4-12)
[2021-07-25 08:42] LABS: Calcium 8.8 MG/DL (8.5-10.1); Potassium 4.6 MMOL/L (3.5-5.1)
[2021-07-25] MEDS: PANTOPRAZOLE 40 MG TABLET PO SCH (08:54)
[2021-07-25] MEDS: GABAPENTIN 100 MG CAPSULE PO SCH ×3 (08:54→21:04)
[2021-07-25] MEDS: lisinopriL 20 MG TABLET PO SCH (08:54)
[2021-07-25] MEDS: LORATADINE 10 MG TABLET PO SCH (08:54)
[2021-07-25] MEDS: ASPIRIN CHEW 81 MG TABLET PO SCH (08:54)
[2021-07-25] MEDS: MULTIVITAMIN (BEROCCA) TABLET PO SCH (08:54)
[2021-07-25] MEDS: carvediloL 12.5 MG TABLET PO SCH ×2 (08:54→21:04)
[2021-07-25] MEDS: ENOXAPARIN 30 MG/0.3 ML SYRINGE SUBCUT SCH (08:54)
[2021-07-25] MEDS: PENTOXIFYLLINE 400 MG TABLET PO SCH ×3 (08:54→21:10)
[2021-07-25] MEDS ORDERED: SODIUM CHLORIDE 0.9% 1,000 ML IV PRN ×2 (11:19→11:20)
[2021-07-25] MEDS ORDERED: GABAPENTIN 100 MG CAPSULE PO SCH (15:00)
[2021-07-25] MEDS: oxyCODONE/ACETAMINOPHEN 5-325 MG TABLET PO PRN (17:55)
[2021-07-25] MEDS: ATORVASTATIN 20 MG TABLET PO SCH (21:04)
[2021-07-25] MEDS: SEVELAMER CARBONATE 800 MG TABLET PO SCH (21:04)
[2021-07-26 08:01] LABS: Basophils % 0.4 % (0.0-0.8); Eosinophils # 0.1 10*3/uL (0.0-0.87); Eosinophils % 1.8 % (0.00-10.9); Hematocrit 20.3 VOL% (35.7-47.0); Immature Granulocytes % 0.6 %; Immature Granulocytes Absolute 0.03 #; Lymphocytes # 1.2 10*3/uL (1.4-4.0); Lymphocytes % 22.8 % (21.3-54.2); Mean Corpuscular Volume 104.6 FL (87-102); Mean Platelet Volume 11.5 FL (9.6-12.0); Monocytes % 9.4 % (1.7-12.7); Platelet Count 74 T/CUMM (130-400); Red Blood Count 1.94 MC/CUMM (3.8-5.5); Red Cell Distribution Width 15.7 % (9.3-17.3); White Blood Count 5.5 T/CUMM (4-12)
[2021-07-26 08:05] LABS: Hemoglobin 6.3 GM/DL (12.0-16.0)
[2021-07-26] MEDS: INSULIN LISPRO 100 UNIT/ML SUBCUT SCH ×7 (08:05→22:26)
[2021-07-26 08:11] LABS: Calcium 8.8 MG/DL (8.5-10.1); Osmolality,Calculated 284.1 MOS/KG (273-304); Potassium 5.1 MMOL/L (3.5-5.1)
[2021-07-26 08:24] LABS: Hypochromia 1+; Macrocytosis Slight; Platelet Estimate Decreased
[2021-07-26] MEDS: PENTOXIFYLLINE 400 MG TABLET PO SCH ×3 (09:01→22:07)
[2021-07-26] MEDS: ASPIRIN CHEW 81 MG TABLET PO SCH (09:02)
[2021-07-26] MEDS: MULTIVITAMIN (BEROCCA) TABLET PO SCH (09:02)
[2021-07-26] MEDS: lisinopriL 20 MG TABLET PO SCH (09:02)
[2021-07-26] MEDS: carvediloL 12.5 MG TABLET PO SCH ×2 (09:02→17:21)
[2021-07-26] MEDS: GABAPENTIN 100 MG CAPSULE PO SCH ×3 (09:02→22:06)
[2021-07-26] MEDS: PANTOPRAZOLE 40 MG TABLET PO SCH (09:02)
[2021-07-26] MEDS: LORATADINE 10 MG TABLET PO SCH (09:02)
[2021-07-26] MEDS: ENOXAPARIN 30 MG/0.3 ML SYRINGE SUBCUT SCH (09:03)
[2021-07-26] MEDS: ZINC OXIDE PASTE 113 GM TUBE TOP SCH ×2 (14:28→22:06)
[2021-07-26] MEDS: oxyCODONE/ACETAMINOPHEN 5-325 MG TABLET PO PRN (15:53)
[2021-07-26] MEDS: ATORVASTATIN 20 MG TABLET PO SCH (22:06)
[2021-07-26] MEDS: SEVELAMER CARBONATE 800 MG TABLET PO SCH (22:06)
[2021-07-27 07:17] VITALS: BP 122/41
[2021-07-27 08:06] LABS: Hematocrit 23.4 VOL% (35.7-47.0)
[2021-07-27 08:08] LABS: Hemoglobin 7.7 GM/DL (12.0-16.0)
[2021-07-27] MEDS: INSULIN LISPRO 100 UNIT/ML SUBCUT SCH ×5 (08:54→13:37)
[2021-07-27] MEDS: PENTOXIFYLLINE 400 MG TABLET PO SCH (08:54)
[2021-07-27] MEDS: ENOXAPARIN 30 MG/0.3 ML SYRINGE SUBCUT SCH (08:55)
[2021-07-27] MEDS: carvediloL 12.5 MG TABLET PO SCH (08:55)
[2021-07-27] MEDS: PANTOPRAZOLE 40 MG TABLET PO SCH (08:55)
[2021-07-27] MEDS: lisinopriL 20 MG TABLET PO SCH (08:55)
[2021-07-27] MEDS: GABAPENTIN 100 MG CAPSULE PO SCH (08:55)
[2021-07-27] MEDS: ASPIRIN CHEW 81 MG TABLET PO SCH (08:55)
[2021-07-27] MEDS: LORATADINE 10 MG TABLET PO SCH (08:55)
[2021-07-27] MEDS: MULTIVITAMIN (BEROCCA) TABLET PO SCH (08:55)
[2021-07-27] MEDS: ZINC OXIDE PASTE 113 GM TUBE TOP SCH (08:59)
[2021-07-27] MEDS ORDERED: POLYETHYLENE GLYCOL POWDER 17 GM PACK PO SCH (09:00)
[2021-07-27] MEDS ORDERED: BISACODYL 5 MG TABLET PO ONE (09:15)
== END 2021-07-27 15:02 | DRG 480 ==
LOC: N.ED 07:36 → N.3E 09:26 → SUATTDRO 09:26 → N.3E 12:03
PROVIDERS: ADMIT Hospitalist; ATTEND Emergency Medicine